=== PATIENT | male | born 1970 | race Hispanic/Latino ===

== ENCOUNTER 2024-02-26 20:43 | Inpatient (IN) | payer SELFPAY ==
[~2024-02-26] VITALS: Ht 172.7 cm; Wt 88.5 kg
[2024-02-26 21:03] VITALS: TEMP 98.7
[2024-02-26 21:23] LABS: BASOPHILS % 0.1 % (0.0-1.0); HEMATOCRIT 37.4 % (38.2-49.6); HEMOGLOBIN 12.7 g/dL (14.0-18.0); LYMPHOCYTES # (AUTO) 1.8 (1.0-3.2); LYMPHOCYTES % 13.8 % (18.0-39.1); MEAN CORPUSCULAR HEMOGLOBIN 30.8 pg (28-32); MEAN CORPUSCULAR VOLUME 90.6 fL (81-99); MONOCYTES # (AUTO) 0.9 (0.2-0.8); MONOCYTES % 7.3 % (4.4-11.3); NEUTROPHILS # (AUTO) 10.1 (2.1-6.9); NEUTROPHILS % 78.5 % (38.7-80.0); PLATELET COUNT 283 x10e3/uL (140-360); RED BLOOD COUNT 4.13 x10e6/uL (4.3-5.7); RED CELL DISTRIBUTION WIDTH 12.3 % (11.7-14.4); WHITE BLOOD COUNT 12.87 x10e3/uL (4.8-10.8)
[2024-02-26] MEDS: ONDANSETRON HCL INJ 2MG/ML 2ML 2 MG/ML VIAL IV STA (21:26)
[2024-02-26] MEDS: SODIUM CHLORIDE 0.9% 1000ML 1,000 ML IV ONE ×2 (21:26→21:47)
[2024-02-26 21:34] LABS: ALBUMIN 4.1 g/dL (3.5-5.0); ALBUMIN/GLOBULIN RATIO 1.2 (0.8-2.0); BILIRUBIN,TOTAL 0.7 mg/dL (0.2-1.2); CALCIUM 9.1 mg/dL (8.4-10.2); CREATININE, SERUM 10.79 mg/dL (0.72-1.25); TOTAL PROTEIN 7.6 g/dL (6.5-8.1)
[2024-02-26] MEDS ORDERED: DEXTROSE 5% 1,000 ML IV ONE (22:42)
[2024-02-26] MEDS ORDERED: ONDANSETRON HCL INJ 2MG/ML 2ML 2 MG/ML VIAL IV PRN (22:45)
[2024-02-26] MEDS ORDERED: DEXTROSE 50% SYRINGE 50 ML IV PRN (22:45)
[2024-02-26] MEDS: SODIUM BICARBONATE 8.4% INJ 50 ML SYR IV STA (23:07)
[2024-02-26] MEDS: SODIUM BICARBONATE 8.4% VIAL 150 ML in DEXTROSE 5% 1,000 ML IV ONE (23:07)
[2024-02-26] MEDS: CALCIUM CHLORIDE 10% 1.36 MEQ/ML 10ML SYR IV STA (23:07)
[2024-02-26] MEDS: INSULIN REGULAR, HUMAN 100 UNIT/1 ML IV ONE (23:08)
[2024-02-26] MEDS: DEXTROSE 50% SYRINGE 50 ML IV STA (23:08)
[2024-02-26] MEDS: SODIUM BICARBONATE 8.4% SYRING 150 ML ONE (23:45)
[2024-02-27] VITALS (28 sets, daily range): BP systolic 99–179; BP diastolic 53–88; PULSE 70–95; RESP 9–20; TEMP 98.2–98.9; O2SAT 94–100
[2024-02-27 00:08] LABS: CREATINE KINASE 517 IU/L (30-200)
[2024-02-27] MEDS: SOD POLYSTYRENE SULFONATE SUSP 15 GM/60 ML BTL PO ONE (00:12)
[2024-02-27 00:16] LABS: TROPONIN I < 0.001 ng/mL (0-0.300)
[2024-02-27] MEDS: INSULIN REGULAR, HUMAN 100 UNIT/1 ML SQ SCH (07:30)
[2024-02-27 08:18] LABS: BASOPHILS % 0.2 % (0.0-1.0); EOSINOPHILS % 0.2 % (0.0-6.0); HEMATOCRIT 34.4 % (38.2-49.6); HEMOGLOBIN 11.5 g/dL (14.0-18.0); LYMPHOCYTES # (AUTO) 1.5 (1.0-3.2); LYMPHOCYTES % 12.5 % (18.0-39.1); MEAN CORPUSCULAR HEMOGLOBIN 30.7 pg (28-32); MEAN CORPUSCULAR HGB CONC 33.4 g/dL (31-35); MONOCYTES # (AUTO) 1.3 (0.2-0.8); MONOCYTES % 10.9 % (4.4-11.3); NEUTROPHILS # (AUTO) 9.3 (2.1-6.9); NEUTROPHILS % 75.8 % (38.7-80.0); PLATELET COUNT 270 x10e3/uL (140-360); RED BLOOD COUNT 3.74 x10e6/uL (4.3-5.7); WHITE BLOOD COUNT 12.22 x10e3/uL (4.8-10.8)
[2024-02-27 08:28] LABS: ALBUMIN 3.1 g/dL (3.5-5.0); ANION GAP 26.8 mmol/L (8-16); BILIRUBIN,TOTAL 0.5 mg/dL (0.2-1.2); CALCIUM 8.6 mg/dL (8.4-10.2); CREATININE, SERUM 10.5 mg/dL (0.72-1.25); POTASSIUM 4.8 mmol/L (3.5-5.1); TOTAL PROTEIN 6.2 g/dL (6.5-8.1)
[2024-02-27 08:30] LABS: CREATINE KINASE 372 IU/L (30-200)
[2024-02-27 08:35] LABS: TROPONIN I < 0.001 ng/mL (0-0.300)
[2024-02-27 10:46] LABS: CLARITY,URINE HAZY (CLEAR); COLOR,URINE YELLOW (YELLOW); LEUKOCYTE ESTERASE ,URINE NEGATIVE (NEGATIVE); NITRITE,URINE NEGATIVE (NEGATIVE); PH,URINE 5 (5 - 7); PROTEIN,URINE DIPSTICK >=300 (NEGATIVE)
[2024-02-27 10:47] LABS: BILIRUBIN,URINE NEGATIVE (NEGATIVE); GLUCOSE, URINE NEGATIVE (NEGATIVE); KETONES,URINE TRACE (NEGATIVE); URINE UROBILINOGEN 0.2 mg/dL (0.2 - 1)
[2024-02-27 11:33] LABS: AMORPHOUS SEDIMENT,URINE FEW (FEW); EPITHELIAL CELLS,URINE FEW /LPF; RBC,URINE >50 /HPF (0-5); WBC,URINE (MAN) 0-5 /HPF (0-5)
[2024-02-27 12:33] LABS: SODIUM,URINE 47 mmol/L; TOTAL PROTEIN, URINE 177.3 mg/dL (1-14)
[2024-02-27 13:22] LABS: CREATININE,URINE RANDOM 103.16 mg/dL (63-166)
[2024-02-27] MEDS ORDERED: POLYETHYLENE GLYCOL 3350 17 GM PACK PO PRN (16:45)
[2024-02-27] MEDS ORDERED: HYDRALAZINE HCL 20 MG/ML VIAL IV PRN (16:45)
[2024-02-27] MEDS: SODIUM BICARBONATE 8.4% VIAL 50 ML in DEXTROSE 5%/0.45% SOD CHL 1,000 ML IV SCH (17:04)
[2024-02-27] MEDS ORDERED: LISINOPRIL10 MG PO (19:34)
[2024-02-27] MEDS ORDERED: LIPITOR20 MG PO (19:36)
[2024-02-27] MEDS ORDERED: TRADJENTA5 MG PO (19:36)
[2024-02-27] MEDS ORDERED: NOVOLIN 70100 UNIT/3 SC ×2 (19:44→19:46)
[2024-02-27] MEDS ORDERED: MULTI-VITAMIN1 EACH PO (19:52)
[2024-02-27] MEDS ORDERED: MULTI-VITAMIN1 EAC1 PO (19:59)
[2024-02-27] MEDS ORDERED: VITAMIN C500 MG PO (20:00)
[2024-02-28] VITALS (10 sets, daily range): BP systolic 119–159; BP diastolic 53–75; PULSE 72–79; RESP 17–18; TEMP 97.5–98.5; O2SAT 97–100
[2024-02-28 06:53] LABS: BASOPHILS % 0.1 % (0.0-1.0); EOSINOPHILS % 0.1 % (0.0-6.0); HEMATOCRIT 31.9 % (38.2-49.6); HEMOGLOBIN 11.4 g/dL (14.0-18.0); LYMPHOCYTES % 10.9 % (18.0-39.1); MEAN CORPUSCULAR HEMOGLOBIN 30.8 pg (28-32); MEAN CORPUSCULAR HGB CONC 35.7 g/dL (31-35); MEAN CORPUSCULAR VOLUME 86.2 fL (81-99); MONOCYTES # (AUTO) 1.1 (0.2-0.8); MONOCYTES % 11.9 % (4.4-11.3); NEUTROPHILS # (AUTO) 6.7 (2.1-6.9); NEUTROPHILS % 76.8 % (38.7-80.0); PLATELET COUNT 236 x10e3/uL (140-360); RED CELL DISTRIBUTION WIDTH 11.6 % (11.7-14.4); WHITE BLOOD COUNT 8.79 x10e3/uL (4.8-10.8)
[2024-02-28 07:18] LABS: CHOL/HDL RATIO 4.2 (3.9-4.7); CREATINE KINASE 249 IU/L (30-200); PHOSPHORUS 8.7 MG/DL (2.3-4.7)
[2024-02-28 07:31] LABS: TROPONIN I < 0.001 ng/mL (0-0.300)
[2024-02-28 07:38] LABS: FREE T4 (FREE THYROXINE) 1.05 ng/dL (0.8-1.8); THYROID STIMULATING HORMONE 0.138 uIU/mL (0.350-4.940)
[2024-02-28 07:40] LABS: CALCIUM 7.6 mg/dL (8.4-10.2); CREATININE, SERUM 11.2 mg/dL (0.72-1.25)
[2024-02-28 09:56] LABS: INR 0.95; PROTHROMBIN TIME 13.4 seconds (11.9-14.5)
[2024-02-28] MEDS: SODIUM CHLORIDE 0.9% 1000ML 1,000 ML IV SCH (10:39)
[2024-02-28 14:48] LABS: CREATINE KINASE 265 IU/L (30-200)
[2024-02-28 14:57] LABS: TROPONIN I < 0.001 ng/mL (0-0.300)
[2024-02-28] MEDS: SODIUM CHLORIDE 1 GM TAB PO SCH (18:50)
[2024-02-28] MEDS: LACTATED RINGER'S 1,000 ML INJ ONE (18:50)
[2024-02-29] VITALS (9 sets, daily range): BP systolic 114–130; BP diastolic 52–64; PULSE 66–78; RESP 16–18; TEMP 97.7–98.3; O2SAT 96–100
[2024-02-29 06:14] LABS: BASOPHILS % 0.1 % (0.0-1.0); EOSINOPHILS # (AUTO) 0.1 (0.0-0.4); EOSINOPHILS % 0.6 % (0.0-6.0); HEMOGLOBIN 10.5 g/dL (14.0-18.0); LYMPHOCYTES # (AUTO) 1.2 (1.0-3.2); LYMPHOCYTES % 13.2 % (18.0-39.1); MEAN CORPUSCULAR HEMOGLOBIN 30.8 pg (28-32); MONOCYTES # (AUTO) 1.1 (0.2-0.8); MONOCYTES % 12.7 % (4.4-11.3); NEUTROPHILS # (AUTO) 6.6 (2.1-6.9); NEUTROPHILS % 73.2 % (38.7-80.0); PLATELET COUNT 218 x10e3/uL (140-360); RED BLOOD COUNT 3.41 x10e6/uL (4.3-5.7); RED CELL DISTRIBUTION WIDTH 11.7 % (11.7-14.4); WHITE BLOOD COUNT 8.96 x10e3/uL (4.8-10.8)
[2024-02-29 06:50] LABS: ANION GAP 20.4 mmol/L (8-16); CALCIUM 7.6 mg/dL (8.4-10.2); CREATININE, SERUM 10.42 mg/dL (0.72-1.25); POTASSIUM 4.4 mmol/L (3.5-5.1)
[2024-02-29 07:18] LABS: COMPLEMENT C3 102 mg/dL (82-167)
[2024-02-29 09:52] LABS: COMPLEMENT C4 25 mg/dL (12-38)
[2024-02-29] MEDS ORDERED: SENNA-S TABLET PO PRN (20:00)
[2024-03-01] VITALS (10 sets, daily range): BP systolic 98–155; BP diastolic 50–84; PULSE 64–78; RESP 17–18; TEMP 97.4–98.3; O2SAT 98–100
[2024-03-01 05:00] LABS: CREATININE,URINE RANDOM 32.46 mg/dL (63-166); TOTAL PROTEIN 24HR, URINE 2660.5 mg/24hr (50-100); TOTAL PROTEIN, URINE 31.3 mg/dL (1-14)
[2024-03-01 05:34] LABS: BASOPHILS % 0.4 % (0.0-1.0); EOSINOPHILS # (AUTO) 0.1 (0.0-0.4); EOSINOPHILS % 0.9 % (0.0-6.0); HEMATOCRIT 31.1 % (38.2-49.6); HEMOGLOBIN 10.7 g/dL (14.0-18.0); LYMPHOCYTES # (AUTO) 1.3 (1.0-3.2); LYMPHOCYTES % 16.7 % (18.0-39.1); MEAN CORPUSCULAR HEMOGLOBIN 30.7 pg (28-32); MEAN CORPUSCULAR HGB CONC 34.4 g/dL (31-35); MEAN CORPUSCULAR VOLUME 89.4 fL (81-99); MONOCYTES # (AUTO) 0.9 (0.2-0.8); MONOCYTES % 12.1 % (4.4-11.3); NEUTROPHILS # (AUTO) 5.4 (2.1-6.9); NEUTROPHILS % 69.6 % (38.7-80.0); PLATELET COUNT 232 x10e3/uL (140-360); RED BLOOD COUNT 3.48 x10e6/uL (4.3-5.7); RED CELL DISTRIBUTION WIDTH 11.9 % (11.7-14.4); WHITE BLOOD COUNT 7.68 x10e3/uL (4.8-10.8)
[2024-03-01 06:24] LABS: ANION GAP 21.2 mmol/L (8-16); CALCIUM 8.6 mg/dL (8.4-10.2); CREATININE, SERUM 7.62 mg/dL (0.72-1.25)
[2024-03-01 06:34] LABS: POTASSIUM 5.2 mmol/L (3.5-5.1)
[2024-03-01] MEDS: POLYETHYLENE GLYCOL 3350 17 GM PACK PO SCH (08:13)
[2024-03-01] MEDS ORDERED: MIDAZOLAM HCL 2 MG/2 ML VIAL ONE ×2 (12:01→19:08)
[2024-03-01] MEDS ORDERED: FENTANYL CITRATE/PF 100MCG/2 ML INJ ONE ×2 (12:01→19:08)
[2024-03-01 15:15] LABS: cANCA TITER <1:20 titer (Neg:<1:20)
[2024-03-01 15:36] LABS: ATYPICAL pANCA TITER <1:20 titer (Neg:<1:20); pANCA TITER <1:20 titer (Neg:<1:20)
[2024-03-01] MEDS: INSULIN REGULAR, HUMAN 100 UNIT/1 ML SQ ONE ×2 (16:13→18:10)
[2024-03-01] MEDS ORDERED: LIDOCAINE HCL 1% LOCAL INJ 20 ML VIAL ONE (18:33)
[2024-03-01] MEDS ORDERED: HEPARIN SOD (PORCINE) 1000 UNIT/ML SDV ONE (19:03)
[2024-03-02] VITALS (12 sets, daily range): BP systolic 112–152; BP diastolic 52–62; PULSE 65–78; RESP 17–22; TEMP 98–98.6; O2SAT 98–100
[2024-03-02 05:22] LABS: BASOPHILS % 0.1 % (0.0-1.0); EOSINOPHILS # (AUTO) 0.1 (0.0-0.4); HEMATOCRIT 33.2 % (38.2-49.6); HEMOGLOBIN 10.9 g/dL (14.0-18.0); LYMPHOCYTES # (AUTO) 1.4 (1.0-3.2); LYMPHOCYTES % 15.9 % (18.0-39.1); MEAN CORPUSCULAR HEMOGLOBIN 30.8 pg (28-32); MEAN CORPUSCULAR HGB CONC 32.8 g/dL (31-35); MEAN CORPUSCULAR VOLUME 93.8 fL (81-99); MONOCYTES # (AUTO) 0.9 (0.2-0.8); MONOCYTES % 10.1 % (4.4-11.3); NEUTROPHILS # (AUTO) 6.3 (2.1-6.9); NEUTROPHILS % 72.3 % (38.7-80.0); PLATELET COUNT 253 x10e3/uL (140-360); RED BLOOD COUNT 3.54 x10e6/uL (4.3-5.7); RED CELL DISTRIBUTION WIDTH 11.7 % (11.7-14.4); WHITE BLOOD COUNT 8.73 x10e3/uL (4.8-10.8)
[2024-03-02 05:45] LABS: ANION GAP 19.7 mmol/L (8-16); CALCIUM 8.7 mg/dL (8.4-10.2); CREATININE, SERUM 4.29 mg/dL (0.72-1.25); POTASSIUM 4.7 mmol/L (3.5-5.1)
[2024-03-02] MEDS: ACETAMINOPHEN 325 MG TAB PO PRN (08:01)
[2024-03-02] MEDS ORDERED: NOVOLIN 70100 UNIT/3 (17:31)
[2024-03-03] VITALS (8 sets, daily range): BP systolic 136–158; BP diastolic 59–70; PULSE 20–82; RESP 18–22; TEMP 98.1–98.5; O2SAT 96–100
[2024-03-03 06:14] LABS: BASOPHILS % 0.4 % (0.0-1.0); EOSINOPHILS # (AUTO) 0.1 (0.0-0.4); EOSINOPHILS % 1.1 % (0.0-6.0); HEMATOCRIT 30.9 % (38.2-49.6); HEMOGLOBIN 10.5 g/dL (14.0-18.0); LYMPHOCYTES # (AUTO) 1.4 (1.0-3.2); LYMPHOCYTES % 14.9 % (18.0-39.1); MEAN CORPUSCULAR HEMOGLOBIN 30.8 pg (28-32); MEAN CORPUSCULAR VOLUME 90.6 fL (81-99); MONOCYTES # (AUTO) 0.9 (0.2-0.8); MONOCYTES % 9.4 % (4.4-11.3); NEUTROPHILS # (AUTO) 6.8 (2.1-6.9); NEUTROPHILS % 73.9 % (38.7-80.0); PLATELET COUNT 264 x10e3/uL (140-360); RED BLOOD COUNT 3.41 x10e6/uL (4.3-5.7); RED CELL DISTRIBUTION WIDTH 11.7 % (11.7-14.4); WHITE BLOOD COUNT 9.22 x10e3/uL (4.8-10.8)
[2024-03-03 06:26] LABS: ANION GAP 14.7 mmol/L (8-16); CALCIUM 8.8 mg/dL (8.4-10.2); CREATININE, SERUM 2.3 mg/dL (0.72-1.25); POTASSIUM 4.7 mmol/L (3.5-5.1)
[2024-03-03] MEDS: REG INSULIN SQ SCH (12:06)
[2024-03-03] MEDS: INSULIN NPH HUM SQ SCH (12:06)
[2024-03-04] VITALS (8 sets, daily range): BP systolic 112–155; BP diastolic 55–70; PULSE 62–78; RESP 18–20; TEMP 98.1–98.5; O2SAT 95–100
[2024-03-04 06:25] LABS: ANION GAP 13.3 mmol/L (8-16); CALCIUM 8.7 mg/dL (8.4-10.2); CREATININE, SERUM 1.66 mg/dL (0.72-1.25); POTASSIUM 4.3 mmol/L (3.5-5.1)
[2024-03-05] VITALS (10 sets, daily range): BP systolic 133–155; BP diastolic 66–79; PULSE 71–85; RESP 18–20; TEMP 98.1–98.4; O2SAT 96–100
[2024-03-05 07:11] LABS: ANION GAP 12.4 mmol/L (8-16); CALCIUM 8.6 mg/dL (8.4-10.2); CREATININE, SERUM 1.23 mg/dL (0.72-1.25); POTASSIUM 4.4 mmol/L (3.5-5.1)
[2024-03-05] MEDS: INSULIN NPH HUM SQ SCH (17:04)
[2024-03-05] MEDS: REG INSULIN SQ SCH (17:04)
[2024-03-05] MEDS: PANTOPRAZOLE SOD 40 MG TABEC PO SCH (17:04)
[2024-03-06] VITALS (8 sets, daily range): BP systolic 134–146; BP diastolic 70–78; PULSE 71–78; RESP 12–22; TEMP 98.1–98.7; O2SAT 98–100
[2024-03-06 07:01] LABS: ANION GAP 13.6 mmol/L (8-16); CALCIUM 8.3 mg/dL (8.4-10.2); CREATININE, SERUM 1.13 mg/dL (0.72-1.25); MAGNESIUM 1.6 MG/DL (1.3-2.1); PHOSPHORUS 2.7 MG/DL (2.3-4.7); POTASSIUM 4.6 mmol/L (3.5-5.1)
[2024-03-06] MEDS ORDERED: SODIUM CHLORI1000 M2 PO (17:33)
[2024-03-06] MEDS ORDERED: ACETAMINOPHEN325 M1 PO (17:33)
[2024-03-08 13:41] LABS: SPE ALPHA 1 GLOBULIN 0.2; SPE ALPHA 2 GLOBULIN 0.7
[2024-03-08 13:42] LABS: GLOBULIN TOTAL 2.7; KAPPA LIGHT CHAINS 107.5; LAMBDA LIGHT CHAINS 61.6; SPE GAMMA GLOBULIN 1.1; SPE TOTAL PROTEIN 5.4
[2024-03-08 13:43] LABS: KAPPA/LAMBDA RATIO 1.75
== END 2024-03-06 19:00 | disposition home or self-care (01) | DRG 674 ==
LOC: ER 20:50 → ERHOLD 22:47 → ICU 02-27 00:50 → MED/SURG3 02-28 13:13
PROVIDERS: ADMIT Internal Medicine; ATTEND Internal Medicine
PROC: 4A043R1 Measurement of Venous Saturation, Peripheral, Percutaneous Approach (ICD-10-PCS; 2024-02-28)
PROC: 0JH63XZ Insertion of Tunneled Vascular Access Device into Chest Subcutaneous Tissue and Fascia, Percutaneous Approach (ICD-10-PCS; principal; 2024-03-01)
PROC: 02H633Z Insertion of Infusion Device into Right Atrium, Percutaneous Approach (ICD-10-PCS; 2024-03-01)
PROC: B5181ZA Fluoroscopy of Superior Vena Cava using Low Osmolar Contrast, Guidance (ICD-10-PCS; 2024-03-01)
PROC: 0TB13ZX Excision of Left Kidney, Percutaneous Approach, Diagnostic (ICD-10-PCS; 2024-03-01)
DX: N17.0 Acute kidney failure with tubular necrosis (principal); E87.1 Hypo-osmolality and hyponatremia; E87.20 Acidosis, unspecified; E87.5 Hyperkalemia; E86.0 Dehydration; E11.65 Type 2 diabetes mellitus with hyperglycemia; R31.29 Other microscopic hematuria; R19.7 Diarrhea, unspecified; R11.2 Nausea with vomiting, unspecified; E87.8 Other disorders of electrolyte and fluid balance, not elsewhere classified; E11.22 Type 2 diabetes mellitus with diabetic chronic kidney disease; I12.9 Hypertensive chronic kidney disease with stage 1 through stage 4 chronic kidney disease, or unspecified chronic kidney disease; N18.9 Chronic kidney disease, unspecified; E11.69 Type 2 diabetes mellitus with other specified complication; Z79.4 Long term (current) use of insulin; Z79.84 Long term (current) use of oral hypoglycemic drugs; E78.5 Hyperlipidemia, unspecified; E66.9 Obesity, unspecified; Z71.3 Dietary counseling and surveillance; Z68.29 Body mass index [BMI] 29.0-29.9, adult; Z87.891 Personal history of nicotine dependence; Z11.52 Encounter for screening for COVID-19; Z79.899 Other long term (current) drug therapy; Z89.411 Acquired absence of right great toe
CPT/HCPCS: 36415; 36558; 50200; 51700; 71045; 74470; 76770; 76937; 76942; 77001; 80048; 80053; 80061; 81001; 81050; 82550; 82570; 82784; 82948; 83036; 83690; 83735; 83880; 84100; 84156; 84165; 84295; 84300; 84439; 84443; 84484; 85025; 85610; 86021; 86160; 93005; 94799; 96372; 99152; 99153; 99252; 99285; J0690; J1644; J2001; J2250; J2405; J2470; J7030; J7070; J7799; U0002

== ENCOUNTER → 2024-03-13 | Outpatient (REF) | payer SELFPAY ==
[~2024-03-13] MED LIST: ACETAMINOPHEN325 M1 PO; LIPITOR20 MG PO; LISINOPRIL10 MG PO; MULTI-VITAMIN1 EAC1 PO; MULTI-VITAMIN1 EACH PO; NOVOLIN 70100 UNIT/3; NOVOLIN 70100 UNIT/3 SC; SODIUM CHLORI1000 M2 PO; TRADJENTA5 MG PO; VITAMIN C500 MG PO
== END ==
LOC: DX 10:31
PROVIDERS: ATTEND Internal Medicine
DX: N17.9 Acute kidney failure, unspecified (principal)
CPT/HCPCS: 36589

== ENCOUNTER 2024-03-29 23:06 | Inpatient (IN) | payer SELFPAY ==
[~2024-03-29] VITALS: Ht 172.7 cm; Wt 88.5 kg
[2024-03-29 23:56] VITALS: TEMP 98.2
[2024-03-30] VITALS (10 sets, daily range): BP systolic 111–147; BP diastolic 63–91; PULSE 73–86; RESP 15–20; TEMP 97.3–98.6; O2SAT 94–100
[2024-03-30 00:45] LABS: BASOPHILS % 0.4 % (0.0-1.0); EOSINOPHILS # (AUTO) 0.1 (0.0-0.4); EOSINOPHILS % 1.3 % (0.0-6.0); HEMATOCRIT 42.1 % (38.2-49.6); HEMOGLOBIN 14.5 g/dL (14.0-18.0); LYMPHOCYTES # (AUTO) 2.3 (1.0-3.2); LYMPHOCYTES % 23.8 % (18.0-39.1); MEAN CORPUSCULAR HEMOGLOBIN 30.5 pg (28-32); MEAN CORPUSCULAR HGB CONC 34.4 g/dL (31-35); MEAN CORPUSCULAR VOLUME 88.6 fL (81-99); MONOCYTES # (AUTO) 0.9 (0.2-0.8); MONOCYTES % 9.2 % (4.4-11.3); NEUTROPHILS # (AUTO) 6.2 (2.1-6.9); NEUTROPHILS % 64.9 % (38.7-80.0); PLATELET COUNT 313 x10e3/uL (140-360); RED BLOOD COUNT 4.75 x10e6/uL (4.3-5.7); RED CELL DISTRIBUTION WIDTH 12.4 % (11.7-14.4); WHITE BLOOD COUNT 9.48 x10e3/uL (4.8-10.8)
[2024-03-30 00:50] LABS: ANION GAP 19.6 mmol/L (8-16); CREATININE, SERUM 3.69 mg/dL (0.72-1.25); POTASSIUM 4.6 mmol/L (3.5-5.1)
[2024-03-30] MEDS: SODIUM CHLORIDE 0.9% 1000ML 1,000 ML IV ONE ×2 (01:07→04:52)
[2024-03-30] MEDS: INSULIN REGULAR, HUMAN 100 UNIT/1 ML SQ ONE (01:08)
[2024-03-30 02:02] LABS: ALBUMIN 4.1 g/dL (3.5-5.0); BILIRUBIN,DIRECT 0.2 mg/dL (0.0-0.5); BILIRUBIN,TOTAL 0.8 mg/dL (0.2-1.2); MAGNESIUM 2.6 MG/DL (1.3-2.1); TOTAL PROTEIN 8.3 g/dL (6.5-8.1)
[2024-03-30] MEDS ORDERED: SODIUM CHLORIDE 0.9% 1000ML 1,000 ML ONE (03:57)
[2024-03-30] MEDS: SODIUM CHLORIDE 0.9% 1000ML 1,000 ML IV SCH (04:52)
[2024-03-30 05:23] LABS: ANION GAP 12.8 mmol/L (8-16); CALCIUM 8.7 mg/dL (8.4-10.2); CREATININE, SERUM 2.57 mg/dL (0.72-1.25); POTASSIUM 3.8 mmol/L (3.5-5.1)
[2024-03-30] MEDS ORDERED: DEXTROSE 50% SYRINGE 50 ML IV PRN (05:45)
[2024-03-30] MEDS ORDERED: ONDANSETRON HCL INJ 2MG/ML 2ML 2 MG/ML VIAL IV PRN (05:45)
[2024-03-30] MEDS: INSULIN REGULAR, HUMAN 100 UNIT/1 ML SQ SCH ×3 (07:30→16:54)
[2024-03-30 10:36] LABS: ANION GAP 15.2 mmol/L (8-16); CALCIUM 8.8 mg/dL (8.4-10.2); CREATININE, SERUM 1.84 mg/dL (0.72-1.25); POTASSIUM 4.2 mmol/L (3.5-5.1)
[2024-03-30] MEDS ORDERED: ACETAMINOPHEN 325 MG TAB PO PRN (12:45)
[2024-03-30 15:10] LABS: ANION GAP 15.1 mmol/L (8-16); CALCIUM 8.9 mg/dL (8.4-10.2); CREATININE, SERUM 1.82 mg/dL (0.72-1.25); POTASSIUM 5.1 mmol/L (3.5-5.1)
[2024-03-30 15:54] LABS: FREE T4 (FREE THYROXINE) 1.02 ng/dL (0.8-1.8); THYROID STIMULATING HORMONE 0.404 uIU/mL (0.350-4.940)
[2024-03-30] MEDS ORDERED: NPH, HUMAN INSULIN ISOPHANE 100 UNIT/1 ML 3ML VIAL SQ SCH (17:00)
[2024-03-30] MEDS: INSULIN LISPRO 100 UNIT/1 ML 3ML VIAL SQ SCH (17:00)
[2024-03-30] MEDS: NPH, HUMAN INSULIN ISOPHANE 100 UNIT/1 ML 3ML VIAL SQ SCH (17:01)
[2024-03-30] MEDS: SODIUM CHLORIDE 0.45% 1,000 ML IV ONE (19:03)
[2024-03-31] VITALS (7 sets, daily range): BP systolic 110–124; BP diastolic 56–72; PULSE 68–83; RESP 16–19; TEMP 97.7–99.2; O2SAT 96–100
[2024-03-31 06:01] LABS: BASOPHILS % 0.5 % (0.0-1.0); EOSINOPHILS # (AUTO) 0.1 (0.0-0.4); EOSINOPHILS % 2.1 % (0.0-6.0); HEMATOCRIT 37.4 % (38.2-49.6); HEMOGLOBIN 12.5 g/dL (14.0-18.0); LYMPHOCYTES # (AUTO) 1.7 (1.0-3.2); LYMPHOCYTES % 30.4 % (18.0-39.1); MEAN CORPUSCULAR HEMOGLOBIN 30.9 pg (28-32); MEAN CORPUSCULAR HGB CONC 33.4 g/dL (31-35); MEAN CORPUSCULAR VOLUME 92.6 fL (81-99); MONOCYTES # (AUTO) 0.6 (0.2-0.8); MONOCYTES % 10.4 % (4.4-11.3); NEUTROPHILS # (AUTO) 3.2 (2.1-6.9); NEUTROPHILS % 56.4 % (38.7-80.0); PLATELET COUNT 270 x10e3/uL (140-360); RED BLOOD COUNT 4.04 x10e6/uL (4.3-5.7); RED CELL DISTRIBUTION WIDTH 12.6 % (11.7-14.4)
[2024-03-31 06:32] LABS: ALBUMIN 3.3 g/dL (3.5-5.0); ALBUMIN/GLOBULIN RATIO 1.1 (0.8-2.0); ANION GAP 12.9 mmol/L (8-16); BILIRUBIN,TOTAL 0.5 mg/dL (0.2-1.2); CALCIUM 8.7 mg/dL (8.4-10.2); CREATININE, SERUM 1.08 mg/dL (0.72-1.25); MAGNESIUM 2.5 MG/DL (1.3-2.1); POTASSIUM 4.9 mmol/L (3.5-5.1); TOTAL PROTEIN 6.3 g/dL (6.5-8.1)
[2024-03-31] MEDS ORDERED: SILDENAFIL CIT100 MG (06:48)
[2024-03-31] MEDS: SENNOSIDES 8.6 MG TAB PO SCH (08:49)
[2024-03-31] MEDS: DOCUSATE SODIUM 100 MG CAP PO SCH (08:49)
[2024-03-31] MEDS ORDERED: NOVOLIN R100 UNIT/1 SC (15:25)
[2024-03-31] MEDS ORDERED: NOVOLIN N100 UNIT/1 SC (15:25)
[2024-03-31 18:00] LABS: ANION GAP 14.1 mmol/L (8-16); CALCIUM 9.3 mg/dL (8.4-10.2); CREATININE, SERUM 1.16 mg/dL (0.72-1.25); POTASSIUM 5.1 mmol/L (3.5-5.1)
== END 2024-03-31 18:44 | disposition home or self-care (01) | DRG 637 ==
LOC: ER 03-30 00:07 → ERHOLD 03-30 05:33 → MED/SURG3 03-30 06:12
PROVIDERS: ADMIT Internal Medicine; ATTEND Internal Medicine
DX: E11.65 Type 2 diabetes mellitus with hyperglycemia (principal); N17.0 Acute kidney failure with tubular necrosis; E87.1 Hypo-osmolality and hyponatremia; E11.42 Type 2 diabetes mellitus with diabetic polyneuropathy; E11.22 Type 2 diabetes mellitus with diabetic chronic kidney disease; I12.9 Hypertensive chronic kidney disease with stage 1 through stage 4 chronic kidney disease, or unspecified chronic kidney disease; E86.0 Dehydration; E78.2 Mixed hyperlipidemia; N18.9 Chronic kidney disease, unspecified; Z11.52 Encounter for screening for COVID-19; Z79.4 Long term (current) use of insulin; Z79.84 Long term (current) use of oral hypoglycemic drugs; Z89.411 Acquired absence of right great toe
CPT/HCPCS: 36415; 80048; 80053; 80076; 82948; 83036; 83735; 84439; 84443; 85025; 94799; 99284; J7030; U0002